=== PATIENT | male | born 2000 | race Two or more races ===

== ENCOUNTER 2025-04-09 08:33 | Emergency (ER) | payer MEDICAID, SELFPAY ==
[2025-04-09 08:44] VITALS: BP 156/103; PULSE 86; RESP 20; TEMP 36.8; O2SAT 98; BMI 31.2
--- NOTE | 2025-04-09 08:47 | XR_ITS ---
Examination: CT brain head without contrast. 2-D sagittal coronal reconstructions Date and time of exam: 04/09/2025 at 8:58 a.m. CTDI: vol (mGy): 56.7 DLP: (mGycm): 1201 INDICATION: Pain in the region of the left ear for the last 4 days Technique: Multiple CT axial sections of the brain have been obtained, 5 mm slice thickness. Contrast has not been administered. 2-D sagittal, coronal reconstructions have been obtained Low dose protocols were performed. One or more of the following dose reduction techniques were used; automated exposure control, adjustment of the mA and/or KV according to patient size, use of iterative reconstruction technique. Findings: The CT appearance of the reardon and white matter within the cerebrum cerebellum and brainstem is normal. There is an oval calcification noted and an extra-axial location adjacent to the right side of the falx cerebrae, this is felt to lie within the wall of the superior sagittal sinus. It is not felt to be of any major significance The appearance of the sella turcica and pituitary gland appears normal the ventricular system appears normal and is in the midline. All paranasal sinuses and mastoids are clear normal. The calvarium and facial bones appear normal. Paranasal sinuses are clear Impression: 1. CT head scan is normal. Please see above regarding a few minor findings
[2025-04-09] MEDS: HYDROcodone/APAP 5/325 TABLET 1 TAB PO (09:17)
--- NOTE | 2025-04-09 09:45 | PD.EDEAR ---
ED Ear RME/HPI General Chief complaint: Ear Stated complaint: Left ear pain X 4 days Time Seen by Provider: 04/09/25 08:36 Arrival date/time: 04/09/25 08:33 25-year-old male presents to the emergency room today for malaise of left ear pain ongoing x 4 days as well as left-sided facial pain patient for symptom onset 4 days ago patient reports no fever nausea or vomiting no mastoid tenderness Limitations: no limitations Related Data Previous Rx's ?Medication ?Instructions ?Recorded amoxicillin 875 mg-potassium 1 tab PO BID 7 days #14 tabs 04/09/25 clavulanate 125 mg tablet ibuprofen 800 mg tablet 800 mg PO TID PRN pain #30 tabs 04/09/25 Allergies Allergy/AdvReac Type Severity Reaction Status Date / Time NKA* Allergy Uncoded 04/09/25 08:37 Review of Systems Review of Systems Systems Reviewed: All systems reviewed, normal except as documented Constitutional Constitutional: Reports system reviewed and no additional complaints, except as documented, Denies fever(s) and Denies headache(s) Eyes Eyes: Reports system reviewed and no additional complaints, except as documented and Denies blurry vision ENT Ears, Nose, Mouth, and Throat: Reports system reviewed and no additional complaints, except as documented, Denies dizziness, Reports otalgia, Reports facial pain, Denies headache(s), Denies nasal congestion and Denies nasal discharge Cardiovascular Cardiovascular: Reports system reviewed and no additional complaints, except as documented, Denies chest pain and Denies dyspnea Respiratory Respiratory: Reports system reviewed and no additional complaints, except as documented, Denies chest congestion, Denies cough and Denies dyspnea Gastrointestinal Gastrointestinal: Reports system reviewed and no additional complaints, except as documented and Denies abdominal pain Integumentary/Breasts Skin/Breast: Reports system reviewed and no additional complaints, except as documented and Denies rash Neurologic Neurologic: Reports system reviewed and no additional complaints, except as documented, Reports as per HPI, Denies dizziness and Denies headache(s) Past Medical History Past Medical History CARDIAC: Negative Congestive Heart Failure RESPIRATORY: Negative Chronic Obstructive Pulmonary Disease (COPD) GENITOURINARY: Negative Renal Disease ENDOCRINE: Negative Diabetes Mellitus Type 1 or Diabetes Mellitus Type 2 Social History SMOKING STATUS: Current every day smoker ED Exam General Limitations: Present no limitations General appearance: Present alert and in no apparent distress Head Head exam: Present atraumatic, normocephalic and normal inspection Eye Eye exam: Present normal appearance, PERRL and EOMI ENT ENT exam: Present mucous membranes moist and other (Otitis media left) Neck Neck exam: Present normal inspection, full ROM and trachea midline Chest Chest inspection: Present normal inspection and symmetric chest wall rise Respiratory Respiratory exam: Present normal lung sounds bilaterally Cardiovascular Cardiovascular exam: Present regular rate, normal rhythm and normal heart sounds Abdominal Exam Abdominal exam: Present soft and normal bowel sounds Extremities Exam Extremities exam: Present normal inspection and full ROM Back Exam Back exam: Present normal inspection and full ROM Neurological Exam Neurological exam: Present alert, oriented X3 and CN II-XII intact Psychiatric Psychiatric exam: Present normal affect and normal mood Skin Skin exam: Present warm, dry, intact and normal color Course Quality Measures none Orders Category Date Time Status CT head/brain wo con Stat Exams 04/09/25 08:47 Completed HYDROcodone*/APAP 5/325 [[place] 5/325] Med 04/09/25 08:47 Discontinued 1 tab PO X1 ONE Vital Signs Vital signs: Vital Signs Temperature 98.2 F 04/09/25 08:44 Pulse Rate 86 04/09/25 08:44 Respiratory Rate 20 04/09/25 08:44 Blood Pressure 156/103 H 04/09/25 08:44 Pulse Oximetry (%) 98 04/09/25 08:44 Oxygen Delivery Method Room Air 04/09/25 08:44 O2 saturation 98% room air within normal limits Ear Patient data External records reviewed:: [facility] previous records Clinical information provided by:: patient Social determinants that could affect healthcare access:: none Patient has the following chronic illnesses:: None How is presenting disease/condition affected by chronic disease/condition?: no chronic disease Evaluation data The following diagnostics were reviewed and interpreted by me:: radiology exam(s) Lab and/or radiology exams considered but not ordered:: Radiology obtained Interpretation Summary: Reviewed by me Medications / Prescriptions Medications or Prescriptions considered but not ordered:: Given Medication administrations:: Medication Administration History Discontinued Medications Hydrocodone Bitart/Acetaminophen (Hydrocodone/Apap 5/325 Tablet) 1 tab PO X1 ONE Stop: 04/09/25 08:48 Last Admin: 04/09/25 09:17 Dose: 1 tab Documented By: Given Consultations Consultation(s) initiated? (list below): No Diagnosis Ear Differential Diagnosis: otitis externa, otitis media and foreign body in ear Most likely diagnosis given after review of the tests above:: Headache, otitis media Admission Indicated Admission indicated?: not indicated Admission Request Was there a request for admission?: No Disposition Plan Disposition Plan: Discharge Discharge Attestation Discharge Attestation: The patient and all family members were given an opportunity to ask questions and understood the discharge instructions. Discharge instructions specifically effects, indications for sooner follow up or return to the emergency department, and the expected course of current diagnosis. Patient condition: Stable Medical Decision Making MDM Narrative MDM Narrative: 25-year-old male presents to the emergency room today for malaise of left ear pain ongoing x 4 days as well as left-sided facial pain patient for symptom onset 4 days ago patient reports no fever nausea or vomiting no mastoid tenderness Clinically well-appearing does not appear ill or toxic On exam patient's TM is mildly erythematous Imaging of the head obtained no acute emergent findings noted Patient discharged home in no distress to follow-up with primary care doctor in the next 24 to 48 hours and for any worsening symptoms to return to the ER immediately Differential Diagnosis Differential Diagnosis: Headache, mastoiditis, sinusitis, otitis media Medical Records Medical records reviewed: Yes I reviewed the patient's medical records. Discharge Plan Plan Patient Disposition: HOME (Self Care) Discharge Disposition comment: Stable Prescriptions/Referrals Prescriptions/Med Rec: New ibuprofen 800 mg tablet 800 mg PO TID PRN (Reason: pain) Qty: 30 0RF amoxicillin-pot clavulanate 875-125 mg tablet 1 tab PO BID 7 Days Qty: 14 0RF Referrals: Stefano Hinojosa PA-C [Primary Care Provider] - 04/10/25 Problem List Clinical Impression: Otitis media Patient/Caregiver Discharge Instructions Education Materials: Common Middle Ear Problems Additional Instructions: Please follow up with your primary care doctor in the next 24-48hrs for any worsening symptoms return here immediately Print Language: Brazilian Stand Alone Forms: Deedee Award Info., Patient Portal Info Letter ISAIAS/BROOK Supervising Physician PA/BROOK Supervising Physician: Dr. powell
== END 2025-04-09 09:57 | disposition home or self-care (01) ==
PROVIDERS: Emergency Provider Family Medicine; PCP Physician Assistant
DX: H66.92 Otitis media, unspecified, left ear (principal)
CPT/HCPCS: 70450; 99282; A9270